=== PATIENT | female | born 1955 | race Caucasian/White ===

== ENCOUNTER → 2017-09-10 | Outpatient (CLI) | payer OTHER ==
[~2017-09-10] MED LIST: ASPIR 8181 MG PO; ATORVASTATIN CA40 MG PO; BELVIQ10 MG PO; EFFIENT10 MG PO; IMDUR 30 MG TAB30 M1 PO; LOPRESSOR25 PO; NITROGLYCERIN0.4 MG SUBLING; OMEPRAZOLE40 MG PO
[2017-09-10 09:46] LABS: CHOLESTEROL 157 mg/dL (<200); HDL CHOLESTEROL 84 mg/dL (>40); LDL CHOLESTEROL 61 mg/dL (<100); TC:HDL 1.9 Ratio (Not establshd); TRIGLYCERIDE 63 mg/dL (<150); VLDL 13 mg/dL (<40)
[2017-09-10 09:47] LABS: SERUM ASSESSMENT Clear
== END ==
LOC: M.LAB 09:16
PROVIDERS: Internal Medicine
DX: E78.00 Pure hypercholesterolemia, unspecified (principal)

== ENCOUNTER → 2018-03-11 | Outpatient (CLI) | payer OTHER | LOC: M.RAD 15:02 | DX: M17.11 Unilateral primary osteoarthritis, right knee (principal); M25.861 Other specified joint disorders, right knee; M70.51 Other bursitis of knee, right knee; E78.5 Hyperlipidemia, unspecified; K21.9 Gastro-esophageal reflux disease without esophagitis; Y93.89 Activity, other specified ==

== ENCOUNTER → 2018-04-15 | Outpatient (CLI) | payer OTHER | LOC: M.RAD 03-12 13:22 | DX: Z12.31 Encounter for screening mammogram for malignant neoplasm of breast (principal); M85.88 Other specified disorders of bone density and structure, other site; M47.896 Other spondylosis, lumbar region; E78.5 Hyperlipidemia, unspecified; K21.9 Gastro-esophageal reflux disease without esophagitis; Z87.891 Personal history of nicotine dependence; Z72.89 Other problems related to lifestyle; Z78.0 Asymptomatic menopausal state ==

== ENCOUNTER → 2019-09-18 | Outpatient (CLI) | payer MEDICARE | LOC: M.RAD 11:02 | DX: Z12.31 Encounter for screening mammogram for malignant neoplasm of breast (principal) ==

== ENCOUNTER → 2020-12-21 | Outpatient (CLI) | payer OTHER | LOC: M.RAD 12:47 | PROVIDERS: ATTEND Family Medicine | DX: Z12.31 Encounter for screening mammogram for malignant neoplasm of breast (principal); N64.89 Other specified disorders of breast ==